=== PATIENT | female | born 1960 | race Caucasian/White ===

== ENCOUNTER 2017-01-20 11:03 | Day surgery (SDC) | payer BC ==
[2017-01-20] VITALS (11 sets, daily range): BP systolic 109–168; BP diastolic 78–102
[~2017-01-20] VITALS: Ht 170.2 cm; Wt 86.2 kg
[~2017-01-20 11:03] MED LIST: ACHD5005 PO; ALBU17AE3; AMIT25TA9; AMPH20TA PO; CYCL10TA9 PO; FLUO40CA PO; IBP800T; LISD30CA PO; LORA10TA2; METH54TA4 PO; NF-MET200T PO; PRD20T PO; RIZA10TA23; TRAZ-28 PO; YASMIN
[2017-01-20] MEDS ORDERED: NS IV 1000 ML 1,000 ML ONE (11:20)
[2017-01-20] MEDS ORDERED: HEParin (CATH LAB) 2,000 ML IV ONE (11:20)
[2017-01-20] MEDS ORDERED: NS IV 1000 ML 1,000 ML IV SCH ×2 (11:45→13:43)
[2017-01-20 11:51] LABS: MEAN PLATELET VOLUME 9.1 FL (7.4-10.4); RED BLOOD COUNT 4.62 10^6/uL (4.35-5.85); RED CELL DISTRIBUTION WIDTH 12.8 % (10.0-14.5); WHITE BLOOD COUNT 8.1 10^3/uL (4.3-11.0)
[2017-01-20 12:00] LABS: INR 0.9 (0.8-1.4); PROTHROMBIN TIME PATIENT 12.3 SEC (12.2-14.7)
[2017-01-20] MEDS ORDERED: INFLUENZA TRIvalent 2017-2018 0.5 ML/45 MCG SYR IM ONE (12:00)
[2017-01-20] MEDS ORDERED: fentaNYL INJECTION 100 MCG/2 ML AMP ONE (12:07)
[2017-01-20] MEDS ORDERED: diphenhydrAMINE 50 MG/ML INJ (BENADRYL) ONE (12:07)
[2017-01-20] MEDS ORDERED: MIDAZOLAM 5 MG/5 ML (VERSED) VIAL ONE (12:07)
[2017-01-20 12:21] LABS: ALBUMIN 4.2 GM/DL (3.2-4.5); BILIRUBIN,TOTAL 0.6 MG/DL (0.1-1.0); CALCIUM 9.2 MG/DL (8.5-10.1); CREATININE SERUM 0.96 MG/DL (0.60-1.30); POTASSIUM 3.8 MMOL/L (3.6-5.0); TOTAL PROTEIN 7.1 GM/DL (6.4-8.2)
[2017-01-20] MEDS ORDERED: FLUO40CA12 PO (12:46)
[2017-01-20] MEDS ORDERED: LINA145C PO (12:46)
[2017-01-20] MEDS ORDERED: ASPI-983 PO (12:46)
[2017-01-20] MEDS ORDERED: ALPR0.5T7 PO (12:46)
[2017-01-20] MEDS ORDERED: CYCL10TA9 PO (12:46)
[2017-01-20] MEDS ORDERED: FLUT9.9S NS (12:46)
[2017-01-20] MEDS ORDERED: LISI-552 PO (12:47)
[2017-01-20] MEDS ORDERED: ATOR20TA66 PO (12:51)
--- NOTE | 2017-01-20 13:43 | Cardiac Procedure Note-CS/ASA ---
Pre-Procedure Note Pre-Op Procedure Note H&P Reviewed The H&P was reviewed, patient examined and no changes noted. Date H&P Reviewed: Jan 20, 2017 Time H&P Reviewed: 12:30 Conscious Sedation Pre-Proced Time Reviewed: 12:30 ASA Class: 2 Airway Mallampati Classification: ([place] appropriate class) I. II. III, IV Lungs Heart ASA score ASA 1: a normal healthy patient ASA 2: a patient with a mild systemic disease (mid diabetes, controlled hypertension, obesity ASA 3: a patient with a severe systemic disease that limits activity (angina , COPD, prior Myocardial infarction) ASA 4: a patient with an incapacitating disease that is a constant threat to life (CHF, renal failure) ASA 5: a moribund patient not expected to survive 24 hrs. (ruptured aneurysm) ASA 6: a declared brain patient whose organs are being harvested. For emergent operations, add the letter E after the classification Grade 2 Sedation Plan: Analgesia, Amnesia, Plan communicated to team members, Discussed options with patient/fam, Discussed risks with patient/fam Note The patient is an appropriate candidate to undergo the planned procedure, sedation, and anesthesia. The patient immediately re-assessed prior to indication. PRITI NARANJO MD FACP FAC CCDS Jan 20, 2017 13:43
[2017-01-20] MEDS ORDERED: PATIENT MAY USE OWN MEDS, ALL PO SCH (13:45)
--- NOTE | 2017-01-20 13:48 | Discharge Inst-Post CATH ---
Discharge Inst-CATH Post Cardiac Cath D/C Inst Follow Up/Plan F/u with Dr Cadet in 1-2 weeks CARDIAC CATH DISCHARGE INSTRUCTIONS *Hold Metformin for 48 hours post heart cath. ACTIVITY * Go Home directly and rest. * Limit activity of the leg (or wrist if it was used) for 7 days including aerobics, swimming, jogging, bicycling, etc. * Restrict stair-climbing for 7 days if possible, if not, climb up with your non -cath leg, then bring together on the same step. * Avoid lifting, pushing, pulling or excessive movement of the affected extremity for 7 days. * Customary sexual activity may be resumed after 2 days-use caution not to use a position that strains or causes pain to the affected extremity. * No driving for 24 hours. * NO SMOKING. * Avoid straining for bowel movements for 7 days. * Gentle walking on level ground is allowed. * Returning to work will depend on the type of procedure and the results. Your doctor will discuss this with you. CALL YOUR DOCTOR FOR ANY OF THE FOLLOWING: *If bleeding from the puncture site occurs- Apply gentle pressure to site with clean cloth and call your doctor or EMS. * If a knot or lump forms under the skin, increases in size, or causes pain. * If bruising appears to be worsening or moving further down your leg instead of disappearing. * Temperature above 101 F. CARE OF YOUR GROIN INCISION; * Bruising or purple discoloration of the skin near the puncture site is common. * You may shower only, no bathtub bathing for 5 days. Be careful to avoid slipping as your leg may feel stiff. * If a closure device was used on your femoral artery, please see the attached guide regarding care of the device and your leg. * REMOVE the dressing from your groin the next day after your procedure in the shower. CARE OF YOUR WRIST INCISION; * Bruising or purple discoloration of the skin near the puncture site is common. * You may shower. * DO NOT submerge wrist. * Remove dressing in 24 hours. PRITI CADET MD [facility] CCDS Jan 20, 2017 13:48
--- NOTE | 2017-01-20 13:48 | Discharge Inst-Cardiology ---
Discharge Inst-Cardiac Discharge Medications Continued Medications: Alprazolam (Alprazolam) 0.5 Mg Tablet 0.5 MG PO DAILY PRN for ANXIETY, TAB Aspirin (Aspirin EC) 81 Mg Tablet.dr 81 MG PO HS, TAB Atorvastatin Calcium (Atorvastatin Calcium) 20 Mg Tablet 20 MG PO DAILY, TAB Cyclobenzaprine HCl (Cyclobenzaprine HCl) 10 Mg Tablet 10 MG PO TID PRN for MUSCLE SPASMS, TAB Fluticasone Propionate (Flonase Allergy Relief) 9.9 Ml [place].susp 1 SPRAY NS DAILY, SPRAY Linaclotide (Linzess) 145 Mcg Capsule 145 MCG PO DAILY, CAP Lisinopril (Lisinopril) 20 Mg Tablet 20 MG PO DAILY, TAB Methylphenidate HCl (Concerta) 54 Mg Tab.er.24 54 MG PO DAILY, TAB Metoprolol Succinate (Toprol Xl) 200 Mg Tab 200 MG PO DAILY, TAB Trazodone HCl (Trazodone HCl) 50 Mg Tablet 25-50 MG PO HS, TAB Discontinued Medications: Fluoxetine HCl (Prozac) 40 Mg Capsule 80 MG PO DAILY, CAP TAKES 2 (40MG) CAPSULES PRITI NARANJO MD FACP FAC CCDS Jan 20, 2017 13:48
--- NOTE | 2017-01-20 16:22 | CARDIAC CATHETERIZATION ---
DATE OF SERVICE: 01/20/2017 The patient is a 58-year-old lady who has multiple risk factors for coronary artery disease and has been experiencing symptoms suggestive of new onset of angina. Cardiac catheterization was carried out today after having obtained an informed consent. PROCEDURE: She was brought to the cardiac catheterization laboratory in the fasting state. Right groin was prepared and draped in usual sterile fashion. Lidocaine 1% was used for local anesthesia. Modified Seldinger technique was used to advance a 5-Afghan sheath into the right femoral artery. A 5-Afghan JL4 catheter was used for left coronary angiography. A 5-Afghan JR4 catheter was used for right coronary angiography. A 5-Afghan pigtail catheter was used for left heart catheterization and left ventricular angiography. Pigtail catheter was pulled back to the aortic arch and the aortic arch angiography was performed with runoff down to the level of the aortoiliac bifurcation. She tolerated the procedure well. Angiography of the right femoral artery was carried out through the sheath. Mynx was used to achieve hemostasis. HEMODYNAMICS: left ventricular end-diastolic pressure following coronary angiography was 13 mmHg. There was no significant pressure gradient on pullback across the aortic valve. Ascending aortic pressure was 138/81 with a mean of 108 mmHg. LEFT VENTRICULAR ANGIOGRAPHY: Left ventricular angiography was carried out in the right anterior oblique projection. Global left ventricular systolic function normal. No regional wall motion abnormalities are seen. Left ventricular ejection fraction approximately 65%. There does not appear to be significant mitral regurgitation. CORONARY ANGIOGRAPHY: Left main coronary artery, left anterior descending artery, left circumflex artery, and right coronary artery are all angiographically normal. Right coronary artery is dominant. AORTIC ARCH ANGIOGRAPHY: Aortic arch angiography did not indicate any significant thoracic aortic aneurysm or dissection. The neck arteries, to the extent visualized, do not exhibit significant disease. CONCLUSIONS: 1. Angiographically normal coronary arteries. 2. Normal global left ventricular systolic function with ejection fraction approximately 65%. 3. Essentially normal left ventricular end-diastolic pressure. 4. No significant mitral regurgitation. DISCUSSION AND RECOMMENDATIONS: Based on results of the study, symptoms do not appear to be of cardiac origin. Continuing risk factor modification is advised. Job ID: [id number] DocumentID: [id number] Dictated Date: 01/20/2017 13:02:33 Summer Nanny Date: 01/20/2017 16:21:32 Dictated By: PRITI NARANJO MD, MA, FACP, FACC,
== END 2017-01-20 17:10 | disposition home or self-care (01) ==
LOC: CATH 11:03 → ICU 13:25 → CATH 17:10
PROVIDERS: ATTEND Nurse Practitioner Family
DX: R07.89 Other chest pain (principal); R06.02 Shortness of breath; I10 Essential (primary) hypertension; Z79.899 Other long term (current) drug therapy; Z87.891 Personal history of nicotine dependence; Z82.49 Family history of ischemic heart disease and other diseases of the circulatory system
CPT/HCPCS: 36221; 36415; 80053; 80061; 85027; 85610; 85730; 87081; 93458

== ENCOUNTER → 2017-01-23 | Outpatient (CLI) | payer BC ==
[~2017-01-23] MED LIST changes: +ALPR0.5T7 PO; +ASPI-983 PO; +ATOR20TA66 PO; +FLUO40CA12 PO; +FLUT9.9S NS; +LINA145C PO; +LISI-552 PO
== END ==
LOC: CARD 10:21
PROVIDERS: ATTEND Internal Medicine Cardiovascular Disease
DX: I10 Essential (primary) hypertension (principal); R07.89 Other chest pain; R06.02 Shortness of breath
CPT/HCPCS: 93306

== ENCOUNTER → 2017-02-10 | Outpatient (CLI) | payer BC ==
[~2017-02-10] VITALS: Ht 170.2 cm; Wt 86.2 kg
[2017-02-10] VITALS (35 sets, daily range): BP systolic 104–165; BP diastolic 89–108
[~2017-02-10] MED LIST changes: +NS IV 1000 ML 1,000 ML IV SCH; +NS IV 1000 ML 1,000 ML ONE
--- NOTE | 2017-02-11 05:19 | OPERATIVE REPORT ---
DATE OF SERVICE: 02/10/2017 TILT TABLE STUDY ORDERING PHYSICIAN: Isaura Ingram APRN and Dr. Naranjo. CLINICAL DIAGNOSIS: Syncope. Baseline blood pressure was obtained. She was flat on a tilt table and blood pressure was obtained. Heart rhythm monitor was attached. The tilt table was tilted with the patient's head up to 70 degrees and maintained for 45 minutes. Blood pressure was measured every minute. Heart rate was monitored continuously. There was no significant drop in blood pressure or heart rate. She did not experience any syncope. The study, thus, is negative for neurocardiogenic syncope. CONCLUSIONS: Tilt table study negative for neurocardiogenic syncope. Job ID: [id number] DocumentID: [id number] Dictated Date: 02/10/2017 13:07:31 Senior [employer] Developer Date: 02/10/2017 22:23:34 Dictated By: PRITI NARANJO MD, MA, FACP, FACC,
== END ==
LOC: CARD 07:09
PROVIDERS: ATTEND Nurse Practitioner Family
DX: I10 Essential (primary) hypertension (principal); R06.02 Shortness of breath; R07.89 Other chest pain; R55 Syncope and collapse
CPT/HCPCS: 93660